=== PATIENT | male | born 1950 | race Caucasian/White ===

== ENCOUNTER 2016-11-11 11:15 | Emergency (ER) | payer OTHER ==
--- NOTE | 2016-11-11 11:39 | C.PDOC ---
History Of Present Illness 66 year old patient, whose medical history includes rheumatoid arthritis ( compliant with medications), presents to the ED with son for evaluation of intermittent episodes of cough and shortness of breath which began around 2 months ago. As per son, patient had not followed up earlier because they were not sure whom to contact. Patient reports weight loss, stating he has lost around 10 pounds within the past 3-4 months. Patient also reports loss of appetite and notes trouble sleeping. Patient denies fever, chills, bloody cough , chest pain or social history of smoking. Time Seen by Provider: 11/11/16 11:35 Chief Complaint (Nursing): Shortness Of Breath History Per: Patient History/Exam Limitations: no limitations Onset/Duration Of Symptoms: Other (2-3 months ) Current Symptoms Are (Timing): Still Present Quality: denies: "Pain" Current Respiratory Medications: See Home Med List Associated Symptoms: Productive Cough. denies: Fever, Chills, Chest Pain, Bloody Cough Additional History Per: Patient Past Medical History Reviewed: Historical Data, Nursing Documentation, Vital Signs Vital Signs: Last Vital Signs Temp 97.7 F 11/11/16 11:31 Pulse 66 11/11/16 14:58 Resp 18 11/11/16 14:58 BP 138/87 11/11/16 11:31 Pulse Ox 100 11/11/16 14:58 - Medical History PMH: No Chronic Diseases Surgical History: No Surg Hx Family History: States: Unknown Family Hx - Social History Hx Tobacco Use: No Review Of Systems Constitutional: Positive for: Weight loss. Negative for: Fever, Chills Cardiovascular: Negative for: Chest Pain Respiratory: Positive for: Cough, Shortness of Breath Physical Exam - Physical Exam Appears: Non-toxic, No Acute Distress Skin: Normal Color, Warm, Dry Head: Atraumatic, Normacephalic Eye(s): bilateral: Normal Inspection Oral Mucosa: Moist Neck: Supple Chest: Symmetrical, No Deformity, No Tenderness Cardiovascular: Rhythm Regular, No Murmur Respiratory: Rales (bilaterally ), No Rhonchi, No Wheezing, Other (mild tachypnea with active wet cough ) Extremity: Normal ROM, No Pedal Edema, Capillary Refill (less than 2 seconds ) Neurological/Psych: Oriented x3, Normal Speech, Normal Cognition Gait: Unable To Assess ED Course And Treatment - Laboratory Results Result Diagrams: 11/11/16 12:11 11/11/16 12:11 ECG: Interpreted By Me ECG Rhythm: Sinus Tachycardia ECG Interpretation: Abnormal Rate From EC O2 Sat by Pulse Oximetry: 97 (on RA) Pulse Ox Interpretation: Normal - Radiology CXR: Interpreted by Me CXR Interpretation: Yes: No Acute Disease Progress Note: labs, EKG, CXR ordered and reviewed. Progress - Re-Evaluation Re-evaluation Note: 11/11/16 13:43 NARD EXAM UNCH PRIOR. PENDING CT 11/11/16 15:24 NARD APPEARS COMFORTABLE. LABS, CTA NO ACUTE FINDINGS. DC ADVISED FU PMD. OUTPT LAB AND RADIOLOGY INFO GIVEN - Data Reviewed Data Reviewed: Lab, Diagnostic imaging, EKG, Old records - Continuity of Care Discussed patient case with:: Patient, Family-HIPPA compliant Disposition Counseled Patient/Family Regarding: Studies Performed, Diagnosis, Need For Followup - Disposition Referrals: YOUR,PMD [Other] Disposition: HOME/ ROUTINE Disposition Time: 15:24 Condition: GOOD Additional Instructions: GET TESTING PRESCRIBED BY YOUR PMD. FOLLOW UP WITH YOUR PMD. Instructions: Dyspnea (ED) Forms: [facility] (Chilean) - Clinical Impression Clinical Impression: Dyspnea - Scribe Statement The provider has reviewed the documentation as recorded by the Scribe (Lucrecia Griffin) Provider Attestation: All medical record entries made by the Scribe were at my direction and personally dictated by me. I have reviewed the chart and agree that the record accurately reflects my personal performance of the history, physical exam, medical decision making, and the department course for this patient. I have also personally directed, reviewed, and agree with the discharge instructions and disposition.
[2016-11-11 12:16] LABS: BASO # 0.1 K/uL (0.0-0.2); EOS # 0.7 K/uL (0.0-0.7); EOS % 10.2 % (0.0-4.0); LYMPH # 1.8 K/uL (1.0-4.3); LYMPH % 26.5 % (20.0-40.0); MEAN CELL VOLUME 82.7 fL (80.0-94.0); MEAN CORPUSCULAR HEMOGLOBIN 27.5 pg (27.0-31.0); MEAN CORPUSCULAR HGB CONC 33.2 g/dL (33.0-37.0); MEAN PLATELET VOLUME 7.2 fL (7.2-11.7); MONO # 0.5 K/uL (0.0-0.8); MONO % 8.2 % (0.0-10.0); RED CELL DISTRIBUTION WIDTH 14.9 % (11.5-14.5); WHITE BLOOD COUNT 6.6 K/uL (4.8-10.8)
--- NOTE | 2016-11-11 12:21 | RAD ---
HISTORY: chest pain COMPARISON: None available. TECHNIQUE: Chest, one view. FINDINGS: LUNGS: Right hilar prominence. No focal consolidation. Please note that chest x-ray has limited sensitivity for the detection of pulmonary masses. PLEURA: No significant pleural effusion identified. No definite pneumothorax . CARDIOVASCULAR: Heart size appears within normal limits. OSSEOUS STRUCTURES: Osseous demineralization. Degenerative changes. VISUALIZED UPPER ABDOMEN: Unremarkable. OTHER FINDINGS: None. IMPRESSION: Right hilar prominence.
[2016-11-11 12:24] LABS: INR 1.1
[2016-11-11 12:25] LABS: CHLORIDE 101 mmol/L (98-107); POTASSIUM 4.1 mmol/L (3.6-5.2); SODIUM 134 mmol/L (132-148)
[2016-11-11 12:27] LABS: AST/SGOT 21 U/L (17-59); BILIRUBIN,TOTAL 0.6 mg/dL (0.2-1.3); CARBON DIOXIDE 23 mmol/L (22-30); GFR AFRICAN-AMERICAN > 60
[2016-11-11 12:28] LABS: ALB/GLOB RATIO 0.7 (1.0-2.1); ALKALINE PHOSPHATASE 72 U/L (38-126); ALT/SGPT 19 U/L (21-72); BLOOD UREA NITROGEN 5 mg/dL (9-20); CALCIUM 9.5 mg/dl (8.6-10.4); GLUCOSE,RANDOM 86 mg/dL (75-110); PHOSPHOROUS 3.4 mg/dL (2.5-4.5); TOTAL PROTEIN 8.9 g/dL (6.3-8.3)
[2016-11-11 12:37] LABS: RBC URINE 1 /hpf (0-3); URINE BACTERIA RARE (<OCC); URINE BILIRUBIN NEGATIVE (NEGATIVE); URINE BLOOD NEGATIVE (NEGATIVE); URINE COLOR Straw (YELLOW); URINE GLUCOSE (UA) NORMAL (Normal); URINE KETONE NEGATIVE (NEGATIVE); URINE LEUKOCYTE ESTERASE NEG Leu/uL (Negative); URINE PROTEIN NEGATIVE (NEGATIVE); URINE UROBILINOGEN NORMAL mg/dL (0.2-1.0); WBC URINE 1 /hpf (0-5)
[2016-11-11 12:41] LABS: VENOUS BLOOD GAS PCO2 42 mmHg (40-60)
[2016-11-11] MEDS ORDERED: Iodixanol 320 MG/ML 100 ML BOTTLE IV ONE ×2 (13:40→13:42)
--- NOTE | 2016-11-11 15:06 | CT ---
CTA chest PE protocol Indication: Shortness of breath, rule out PE Technique: Contiguous axial images were obtained through the chest with intravenous contrast enhancement. Sagittal and coronal reconstructions were generated and reviewed. This CT exam was performed using 1 or more of the falling dose reduction techniques: Automated exposure control, adjustment of the MAA and/or kV according to patient size, and/or use of iterative reconstruction technique. IV Contrast: 100 mL Visipaque. Radiation dose (DLP): 156.96 MGy-cm. Comparison: Chest x-ray performed 11/11/16 Findings: Visualized portions of the inferior thyroid gland appear unremarkable. The mediastinal and hilar vascular structures appear within normal limits. The heart appears within normal limits of size. No large central or segmental pulmonary embolus evident. No focal consolidation. No pleural effusion. No pneumothorax. Bilateral bulla noted at the lung bases. 5 x 7 lingular nodule (series 2, image 130). 5 mm right mid lobe pulmonary nodule (series 2, image 114). Numerous additional tiny scattered pulmonary nodules possibly infectious or inflammatory. Limited visualized portions of the upper abdomen appear grossly unremarkable. Osseous demineralization. Degenerative changes. Impression: No large central or segmental pulmonary embolus evident. Bilateral bulla noted at the lung bases. 7 lingular nodule. 5 mm right mid lobe pulmonary nodule. Guidelines by the Fleischner society suggests that in patients with low risk for lung cancer, CT at 3-6 months is recommended then consider CT at 18-24 months. If the patient is high risk, CT 3 days 6 months is recommended, then at 18-24 months. Numerous additional tiny scattered pulmonary nodules possibly infectious or inflammatory.
[2016-11-11 15:32] VITALS: BP 132/72; PULSE 64; RESP 16; TEMP 97.9; O2SAT 100
== END 2016-11-11 15:25 | disposition home or self-care (01) ==
LOC: C.ER 11:15
DX: R06.00 Dyspnea, unspecified (principal)
CPT/HCPCS: 36415; 71010; 71275; 80053; 81001; 82803; 83735; 83880; 84100; 84484; 85025; 85610; 85730; 87040; 87086; 99284; Q9967

== ENCOUNTER 2016-11-21 16:13 | Emergency (ER) | payer OTHER ==
[2016-11-21 16:18] VITALS: BP 135/85; PULSE 76; RESP 18; TEMP 97.8; O2SAT 98
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
--- NOTE | 2016-11-21 17:29 | RAD ---
PROCEDURE: Radiographs of the right elbow. HISTORY: swelling to elbow COMPARISON: No prior. FINDINGS: BONES: The patient status post prior internal fixation through the proximal right ulnar bone. The hardware are seen at appropriate position. No evidence of acute fracture. JOINTS: Moderate osteoarthritic changes. SOFT TISSUES: There is soft tissue swelling seen posterior to the right elbow JOINT EFFUSION: There is a joint effusion seen at the right elbow. OTHER FINDINGS: None. IMPRESSION: No definite radiographic evidence of acute fracture or dislocation. Soft tissue swelling seen especially posterior to the right elbow. There is suspicious for right elbow joint effusion.
== END 2016-11-21 17:25 | disposition home or self-care (01) ==
LOC: C.ER 16:13
DX: M71.521 Other bursitis, not elsewhere classified, right elbow (principal)